=== PATIENT | male | born 1955 | race Caucasian/White ===

== ENCOUNTER 2019-06-04 08:21 | Outpatient (CLI) | payer OTHER ==
[2019-06-04] VITALS (17 sets, daily range): BP systolic 115–156; BP diastolic 78–108
== END 2019-06-04 23:59 | disposition home or self-care (01) ==
LOC: CARD DIAG 08:21
PROVIDERS: ATTEND Internal Medicine Interventional Cardiology
DX: R55 Syncope and collapse (principal)
CPT/HCPCS: 93660